=== PATIENT | female | born 1940 | race Caucasian/White ===

== ENCOUNTER 2024-05-25 08:32 | Day surgery (SDC) | payer MEDICARE, OTHER, SELFPAY ==
--- NOTE | 2024-05-25 | PATH_ITS ---
[facility] Accession Number: [id number] No. of containers..01 Tissue . 01 Material submitted: . sigmoid colon - SIGMOID POLYP X 2 . 01 Diagnosis: A. SIGMOID COLON, POLYPECTOMY (X2): Tubular adenoma, two fragments. Hyperplastic polyp, one fragment. I 05/29/2024 1302 Local . 01 Electronically signed: . Sedrick Newell MD, Pathologist NPI- [id number] . 01 Gross description: . SIGMOID POLYP X 2: Received in formalin are 3 fragment(s) of carpenter, soft tissue measuring 0.6 x 0.4 x 0.4 cm to 0.9 x 0.5 x 0.4 cm submitted entirely in 1 cassette(s) /VIKY 05/28/2024 1853 Local . 01 Pathologist provided ICD-10: K63.5, K62.5 . 01 CPT . 261036 Specimen Comment: A courtesy copy of this report has been sent to [phone] Performed at: [address] [id number] MD Amauri Esquivel MD Phone: [phone]
[2024-05-25 09:11] VITALS: BP 146/68; PULSE 62; RESP 16; TEMP 36.2; O2SAT 98
--- NOTE | 2024-05-25 09:44 | PM.HP.1 ---
History of Present Illness History of Present Illness Date Patient Seen: 05/25/24 Time Patient Seen: 09:44 Chief complaint: SDC Narrative: Keke is an 83-year-old woman who presents for rectal bleeding. See the office note from April for details. [facility] Medical History (Updated 04/24/24 @ 15:29 by Aishwarya Hernandez RN) Pacemaker Osteoarthritis Hypertrophic cardiomyopathy Surgical History (Updated 04/24/24 @ 15:29 by Aishwarya Hernandez RN) History of appendectomy History of colon resection H/O hernia repair Social History Smoking Status: Never smoker Meds Home Medications and Allergies Home Medications Medication Instructions Recorded Confirmed Type apixaban 5 mg tablet (Eliquis) 5 mg PO BID 04/24/24 05/25/24 History diltiazem HCl 120 mg 120 mg PO DAILY 04/24/24 05/25/24 History capsule,extended release 24 hr mavacamten 5 mg capsule (Camzyos) 5 mg PO DAILY 04/24/24 05/25/24 History niacinamide 500 mg tablet 500 mg PO DAILY 04/24/24 05/25/24 History sodium,potassium,mag sulfates 17.5 See Rx Instructions PO .COMPLEX 04/24/24 04/24/24 Rx gram-3.13 gram-1.6 gram oral soln #354 mL (Suprep Bowel Prep Kit) Allergies Allergy/AdvReac Type Severity Reaction Status Date / Time No Known Drug Allergies Allergy Verified 05/25/24 09:09 Exam Vital Signs (past 8 hours): - 05/25/24 09:11 Temperature 97.2 F L Pulse Rate 62 Respiratory Rate 16 Blood Pressure 146/68 H Pulse Oximetry 98 Oxygen Delivery Method Room Air Oxygen Delivery Method Room Air Const General: No acute distress Resp Effort & Inspection: normal respiratory effort Assessment & Plan Assessment and plan (1) Rectal bleeding: Status: Acute Plan We reviewed the risks and benefits of colonoscopy and she would like to proceed. Time-Based Coding :: [TOTAL MINUTES] spent with patient and on the chart (including review of chart, obtaining history, exam, reviewing outside data, placing orders, documenting exam and treatment plan, and counseling patient) on [DATE].
[2024-05-25 10:22] VITALS: BP 127/71; PULSE 62; RESP 12; TEMP 36.4; O2SAT 97
[2024-05-25 10:27] VITALS: BP 129/67; PULSE 65; RESP 15; O2SAT 97
--- NOTE | 2024-05-25 10:28 | PM.OP.COLON ---
Operative Date/Time/Diagnoses Date of procedure: 05/25/24 Time of procedure: 10:28 Pre-op diagnosis: Rectal bleeding Post-op diagnosis: same Procedure & Clinicians Study performed: Sigmoidoscopy Same procedure as scheduled: No Surgeon: Blaine Ulrich Procedure Notes Procedure in detail: Surgeon: Blaine Ulirch MD Anesthesia: Aleks Smalls DO Procedure: The patient was brought to the endoscopy suite, placed in left lateral decubitus position. The patient was connected to monitoring devices. A time-out was performed. Sedation was administered. Once the patient was adequately sedated, a digital rectal exam was performed and was normal supper mixed hemorrhoids. The scope was then inserted and advanced to the level of the anastomosis in the mid sigmoid colon. There was significant diverticulosis around the staple line. The afferent limb of the anastomosis could not be identified. It appeared that there was sharp angulation at the level of the anastomosis which could not be traversed safely. The scope was not advanced beyond the anastomosis. The scope was slowly withdrawn and 2 5 mm polyps were found in the distal sigmoid colon which were removed with a cold snare. The scope was retroflexed and no other abnormalities were noted beyond internal hemorrhoids. The scope was straightened and removed. The patient was awakened and brought to recovery. Scope withdrawal time: Not applicable Sedation time: 20 minutes EBL: 2 mL Findings: The angulation at the sigmoid anastomosis, 2 small polyps in the distal sigmoid colon and internal and external hemorrhoids Post-procedure Disposition: PACU
[2024-05-25 10:31] VITALS: BP 143/72; PULSE 60; RESP 15; O2SAT 99
[2024-05-25 10:33] VITALS: BP 141/72; PULSE 60; RESP 14; TEMP 36.2; O2SAT 99
== END 2024-05-25 10:40 | disposition home or self-care (01) ==
PROVIDERS: PCP Family Medicine; Referring Provider Surgery; Visit Provider Surgery
PROC: 0DJD8ZZ Inspection of Lower Intestinal Tract, Via Natural or Artificial Opening Endoscopic (ICD-10-PCS; CPT 45378; principal; 2024-05-25 10:00)
DX: K62.5 Hemorrhage of anus and rectum (principal); K57.30 Diverticulosis of large intestine without perforation or abscess without bleeding; K64.8 Other hemorrhoids; K64.4 Residual hemorrhoidal skin tags; D12.5 Benign neoplasm of sigmoid colon; K63.5 Polyp of colon
CPT/HCPCS: 45338; J2704